=== PATIENT | female | born 1970 | race Caucasian/White ===

== ENCOUNTER 2025-02-28 17:01 | Emergency (ER) | payer OTHER ==
[2025-02-28] MEDS ORDERED: Acetaminophen 325 MG TAB ONE (17:11)
== END 2025-02-28 20:00 | disposition home or self-care (01) ==
LOC: BURERS 17:01
DX: S06.0X0A Concussion without loss of consciousness, initial encounter (principal); I10 Essential (primary) hypertension; E03.9 Hypothyroidism, unspecified; W18.09XA Striking against other object with subsequent fall, initial encounter; Y93.89 Activity, other specified; Y92.219 Unspecified school as the place of occurrence of the external cause; Z79.899 Other long term (current) drug therapy
CPT/HCPCS: 70450